=== PATIENT | female | born 1945 | race Caucasian/White ===

== ENCOUNTER → 2016-12-28 | Outpatient (CLI) | payer MEDICARE, OTHER ==
--- NOTE | 2016-12-29 10:41 | RAD ---
DATE: 12/28/2016 EXAM: MAMMO BHUPENDRA SCREENING BILATERAL Bilateral digital screening mammography to include digital breast tomosynthesis (3D mammography) HISTORY: Screening study. COMPARISON: 12/28/2015 This study was interpreted with the benefit of Computerized Aided Detection (CAD). FINDINGS: Digital MLO and CC mammograms of both breasts were obtained. Additionally digital breast tomosynthesis (3D mammography) images of both breasts in the MLO and CC projections were performed. Comparison study is dated 12/28/2015. The breast parenchyma is composed of scattered fibroglandular densities which can obscure a lesion on mammography (breast density code B). No spiculated mass is seen. No malignant appearing calcification or area of architectural distortion is noted. Benign-appearing calcifications are seen within both breasts, unchanged. Digital breast tomosynthesis images demonstrate no spiculated mass or malignant appearing calcification. Since the previous examination there has been no significant interval change. IMPRESSION: BI-RADS Category 1, negative. No mammographic evidence of malignancy. Routine yearly screening mammography is recommended for follow-up. BI-RADS CATEGORY: 1 NEGATIVE RECOMMENDED FOLLOW-UP: 12M 12 MONTH FOLLOW-UP PQRS compliance statement: Patient information was entered into a reminder system with a target due date 12/28/2017 for the next mammogram. Mammography is a sensitive method for finding small breast cancers, but it does not detect them all and is not a substitute for careful clinical examination. A negative mammogram does not negate a clinically suspicious finding and should not result in delay in biopsying a clinically suspicious abnormality. "Our facility is accredited by the [employer] Mammography [employer]."
== END | disposition home or self-care (01) ==
LOC: MAMMO 10:39
PROVIDERS: ATTEND Family Medicine
DX: Z12.31 Encounter for screening mammogram for malignant neoplasm of breast (principal)
CPT/HCPCS: 77063; G0202; 77067

== ENCOUNTER → 2018-03-20 | Outpatient (CLI) | payer MEDICARE, OTHER ==
--- NOTE | 2018-03-20 15:42 | RAD ---
DATE: 03/20/2018 EXAM: MAMMO BHUPENDRA SCREENING BILATERAL HISTORY: Routine screening. History of benign left breast biopsy. COMPARISON: Previous exam from 2017 and 2016. This study was interpreted with the benefit of Computerized Aided Detection (CAD). FINDINGS: Breast Density: SCATTERED The breast parenchyma shows scattered fibroglandular densities. Breast parenchyma level B. The skin and nipples are within normal limits. No suspicious calcifications, spiculated masses or areas of architectural distortion. Stable benign-appearing bilateral calcifications. Stable scattered nodularities. IMPRESSION: No mammographic evidence of malignancy. Stable mammogram. BI-RADS CATEGORY: 2 BENIGN FINDING(S) RECOMMENDED FOLLOW-UP: 12M 12 MONTH FOLLOW-UP PQRS compliance statement: Patient information was entered into a reminder system with a target due date for the next mammogram. Mammography is a sensitive method for finding small breast cancers, but it does not detect them all and is not a substitute for careful clinical examination. A negative mammogram does not negate a clinically suspicious finding and should not result in delay in biopsying a clinically suspicious abnormality. "Our facility is accredited by the [employer] Mammography [employer]."
--- NOTE | 2018-03-20 16:03 | RAD ---
Bone densitometry 03/20/2018 10:03 AM Indication: BONE DENSITY AXIAL screen for osteoporosis Comparison Study: Bone densitometry March 09, 2016. Discussion: Bone Densitometry was performed with dual photon absorption of the lumbar spine and right proximal femur Lumbar Spine: Bone average density is 1.6, 94g/cm2 for L1-L4. T-Score is 4.3 (prior bone mineral density 1.626). Right femoral neck: Bone average density is 1.067g/cm2. T-Score is 0.2 (prior bone mineral density 1.031). IMPRESSION: Normal bone mineral density, similar to comparison exams Note: Definitions established by the World Health Organization: Normal: T-score is -1.0 or above. Osteopenia: T-score is between -1.0 and -2.5. Osteoporosis: T-score is -2.5 or below. Electronically signed by: Shan Rasheed MD (03/20/2018 4:00 PM) [id number]
== END | disposition home or self-care (01) ==
LOC: MAMMO 09:17
PROVIDERS: ATTEND Family Medicine
DX: Z12.31 Encounter for screening mammogram for malignant neoplasm of breast (principal); Z13.820 Encounter for screening for osteoporosis; Z78.0 Asymptomatic menopausal state
CPT/HCPCS: 77063; 77067; 77080

== ENCOUNTER → 2019-03-21 | Outpatient (CLI) | payer MEDICARE, OTHER ==
--- NOTE | 2019-03-21 12:52 | RAD ---
INDICATION: Osteoporosis screening. Postmenopausal screening follow-up COMPARISON: 03/20/2018 TECHNIQUE: Bone densitometry was performed through the lumbar spine and right proximal femur. FINDINGS: Lumbar Spine: L1-4 BMD: 1.7 T-Score: 4.3 Increased by 11% from baseline from 2009. Similar to 2018 Femoral Neck: BMD: 1.03 T-Score: -0.1 Increased by 5% from baseline. Increased by 1-2% from prior IMPRESSION: 1. Lumbar spine falls within the normal range. 2. Femoral neck falls within the normal range. Electronically signed by: Ever Prater MD (03/21/2019 12:49 PM) [facility]
--- NOTE | 2019-03-21 14:31 | RAD ---
DATE: 03/21/2019 10:10 AM EXAM: MAMMO BHUPENDRA SCREENING BILATERAL HISTORY: Screening mammograms COMPARISON: March 20, 2018 and December 28, 2016 Bilateral CC and MLO views of the breasts were performed. Bilateral breast tomosynthesis was performed in CC and MLO projections. This study was interpreted with the benefit of Computerized Aided Detection (CAD). FINDINGS: Breast Density: SCATTERED The breast parenchyma shows scattered fibroglandular densities. Breast parenchyma level B Benign calcifications bilaterally, unchanged. No suspicious masses, microcalcifications or architectural distortion is present to suggest malignancy in either breast. The visualized axillae are unremarkable. IMPRESSION: No mammographic evidence of malignancy. BI-RADS CATEGORY: 1 NEGATIVE RECOMMENDED FOLLOW-UP: 12M 12 MONTH FOLLOW-UP Annual screening mammography is recommended, unless clinically indicated sooner based on symptoms or change in physical exam. PQRS compliance statement: Patient information was entered into a reminder system with a target due date one year for the next mammogram. Mammography is a sensitive method for finding small breast cancers, but it does not detect them all and is not a substitute for careful clinical examination. A negative mammogram does not negate a clinically suspicious finding and should not result in delay in biopsying a clinically suspicious abnormality. "Our facility is accredited by the [employer] Mammography Program."
== END | disposition home or self-care (01) ==
LOC: MAMMO 09:50
PROVIDERS: ATTEND Family Medicine
DX: Z12.31 Encounter for screening mammogram for malignant neoplasm of breast (principal); Z13.820 Encounter for screening for osteoporosis; N64.89 Other specified disorders of breast; N95.9 Unspecified menopausal and perimenopausal disorder
CPT/HCPCS: 77063; 77067; 77080

== ENCOUNTER → 2020-03-25 | Outpatient (CLI) | payer MEDICARE, OTHER ==
--- NOTE | 2020-03-25 11:44 | RAD ---
EXAM: DUAL ENERGY X-RAY ABSORPTIOMETRY (DEXA). HISTORY: Postmenopausal screening. FINDINGS: The lowest measured T-score is 0.5 in the right femoral neck, based on a bone mineral density of 1.103 g/cm^2. Refer to the worksheets for full detail. There has been a 12.8 percent increase in density of the lumbar spine and 9.6 percent increase in density of the right hip compared to a baseline study dated 09/23/2018. IMPRESSION: Normal. Bone mineral density yields a T-score of -1.0 or greater. Fracture risk is low. METHODOLOGY: Dual energy x-ray absorptiometry was performed to measure bone mineral density. The following analysis is based on the 2019 Official Positions of the International Society for Clinical Densitometry: Measurements of the hips and the average of L1-L4 are preferred. When the spine and/or hip cannot be feasibly measured or interpreted, or in the setting of hyperparathyroidism, distal radial bone mineral density may be measured. The lumbar spine T-score is based on the average bone mineral density of L1-L4. In the setting of artifact or anatomic abnormality, some lumbar levels may be excluded, and the remaining levels used for calculation. A single lumbar level is not used for diagnosis, and if only a single level is available for assessment, another anatomic site will be used to assign a diagnosis. The hip T-score is based on the bone mineral density measurement of the femoral neck or total proximal femur of either side, whichever is lowest. Bilateral mean values are not used for diagnosis. The forearm T-score is derived from 33% of the distal radius of the nondominant forearm. Electronically signed by: Moriah Osborne MD (03/25/2020 11:41 AM) [id number]
--- NOTE | 2020-03-25 13:29 | RAD ---
EXAM: Bilateral digital screening mammogram with tomosynthesis. HISTORY: 73-year-old female presents for screening mammography. TECHNIQUE: Full-field digital craniocaudal and mediolateral oblique 2D and 3D tomosynthesis images of both breasts are obtained for evaluation. Computer aided detection was applied. COMPARISON: 03/21/2019 and 03/20/2018 BREAST PARENCHYMAL DENSITY: Level B - Scattered fibroglandular densities. FINDINGS: There is no new suspicious mass, microcalcification or region of architectural distortion. There are stable areas of asymmetry and nodularity within both breasts. There are benign calcifications. IMPRESSION: BI-RADS Category 2: Benign finding(s). RECOMMENDATION: Annual mammography is recommended. If your mammogram demonstrates that you have dense breast tissue, which could hide abnormalities, and if you have other risk factors for breast cancer that have been identified, you might benefit from supplemental screening tests that may be suggested by your ordering physician. Dense breast tissue, in and of itself, is a relatively common condition. This information is not provided to cause undue concern, but rather to raise your awareness and to promote discussion with your physician regarding the presence of other risk factors, in addition to dense breast tissue. A report of your mammography results will be sent to you and your physician. You should contact your physician if you have any questions or concerns regarding this report. Mammography is a sensitive method for finding small breast cancers, but it does not detect them all and is not a substitute for careful clinical examination. A negative mammogram does not negate a clinically suspicious finding and should not result in delay in biopsying a clinically suspicious abnormality. PQRS compliance statement - Patient information was entered into a reminder system with a target due date for the next mammogram. "Our facility is accredited by the [employer] Mammography Program." Electronically signed by: Moriah Osborne MD (03/25/2020 1:25 PM) [id number]
== END ==
LOC: MAMMO 10:54
PROVIDERS: ATTEND Family Medicine
DX: Z12.31 Encounter for screening mammogram for malignant neoplasm of breast (principal); Z13.820 Encounter for screening for osteoporosis; N64.89 Other specified disorders of breast; Z78.0 Asymptomatic menopausal state
CPT/HCPCS: 77063; 77067; 77080

== ENCOUNTER → 2021-03-26 | Outpatient (CLI) | payer MEDICARE, OTHER ==
[~2021-03-26] MED LIST: ONDA4TAB12 PO
--- NOTE | 2021-03-26 13:56 | RAD ---
CT CERVICAL SPINE WO History: Neck pain radiating to right shoulder. Comparison: None. Technique: Noncontrast CT of the cervical spine. Findings: There are 7 nonrib-bearing cervical vertebral segments. There is no evidence for fracture in the cervical spine. Reversal the normal cervical lordosis. Mild approximately 2 mm anterolisthesis of C5 on C6. There is disc and C3-C4, C4-C5 and C5-C6. Mild uncovertebral hypertrophy at these levels. Prominent facet hypertrophy is C2-C6 bilaterally. There is moderate neural foraminal narrowing from C 3-C4 through C5-C6. No destructive osseous lesions are seen. Hazy calcification surrounding the dens likely represents cr ystal deposition disease. Bilateral carotid bulb calcifications. Impression: 1. No acute osseous abnormality in the cervical spine. 2. Multilevel degenerative disc, facet and uncovertebral disease causes moderate neural foraminal na rrowing bilaterally C3-C4 through C5-C6 with potential for symptomatic stenoses. If there is concern for radiculopathy, recommend cervical MRI. 3. ADC calcification surrounding the dens likely represent crystal deposition disease such as calciu m pyrophosphate or hydroxyapatite. ------- Exposure: One or more of the following individualized dose reduction techniques were utilized for thi s examination: 1. Automated exposure control 2. Adjustment of the mA and/or kV according to patient size 3. Use of iterative reconstruction technique. Electronically signed by: Akash Kim MD (03/26/2021 1:53 PM) [id number]
== END ==
LOC: RAD 12:45
PROVIDERS: ATTEND Family Medicine
DX: M48.02 Spinal stenosis, cervical region (principal); M43.12 Spondylolisthesis, cervical region; I65.23 Occlusion and stenosis of bilateral carotid arteries
CPT/HCPCS: 72125

== ENCOUNTER 2021-03-28 12:24 | Emergency (ER) | payer MEDICARE, OTHER ==
[~2021-03-28] VITALS: Ht 167.6 cm; Wt 95.4 kg
--- NOTE | 2021-03-28 13:03 | PHYS DOC ---
Past History Alcohol Use: Occasionally Adult General Chief Complaint Chief Complaint: MULTIPLE COMPLAINTS HPI HPI Patient is a 75-year-old female presenting for multiple complaints. First, she complains of chronic right neck pain. She has been evaluated this by her [facility] physician and has had extensive work-up in the outpatient setting with most recent CT neck imaging performed 48 hours prior showing areas of stenosis that are obviously symptomatic to patient. She has pending outpatient MRI for this matter. She was recently prescribed methocarbamol and and meloxicam which she has been taking since imaging 48 hours ago. She also reports that she has had 3 days of nausea vomit diarrhea. States she has had generalized nausea with numerous episodes of nonbloody nonbilious emesis and looser stools than usual that have also been nonbloody. She has had no sick contact or recent travel and is fully vaccinated against COVID-19. She does admit that she has been taking these new medications on an empty stomach Review of Systems Review of Systems Fourteen body systems of review of systems have been reviewed. See HPI for pertinent positives and negative responses, other [place] all other systems are negative, non-pertinent or non-contributory Physical Exam Physical Exam Constitutional: Well developed, well nourished, no acute distress, non-toxic appearance. HENT: Normocephalic, atraumatic, bilateral external ears normal, oropharynx moist, no oral exudates, nose normal. Eyes: PERRLA, EOMI, conjunctiva normal, no discharge. Neck: Normal range of motion, no midline tenderness, supple, no stridor. Positive Spurling sign of right Cardiovascular: Heart rate regular, sinus rhythm, no murmurs rubs or gallops Lungs & Thorax: Bilateral breath sounds clear to auscultation Abdomen: Bowel sounds normal, soft, no tenderness, no masses, no pulsatile masses. Nonsurgical abdomen, no peritoneal signs Skin: Warm, dry, no erythema, no rash. Back: No tenderness, no CVA tenderness. Extremities: No tenderness, no cyanosis, no clubbing, ROM intact, no edema. Neurologic: Alert and oriented X 3, grossly normal motor & sensory function, no focal deficits noted. Psychologic: Anxious affect and mood Current Patient Data Vital Signs Vital Signs Date Time Temp Pulse Resp B/P (MAP) Pulse Ox O2 Delivery O2 Flow Rate FiO2 03/28/21 12:24 97.4 92 16 124/50 (74) 96 Room Air Vital Signs Date Time Temp Pulse Resp B/P (MAP) Pulse Ox O2 Delivery O2 Flow Rate FiO2 03/28/21 12:24 97.4 92 16 124/50 (74) 96 Room Air Lab Results Laboratory Tests Test 03/28/21 13:11 03/28/21 14:00 White Blood Count 12.1 x10^3/uL Red Blood Count 4.14 x10^6/uL Hemoglobin 13.3 g/dL Bedside Hemoglobin gm/dL Hematocrit 40.6 % Bedside Hematocrit % Mean Corpuscular Volume 98 fL Mean Corpuscular Hemoglobin 32 pg Mean Corpuscular Hemoglobin Concent 33 g/dL Red Cell Distribution Width 13.8 % Platelet Count 305 x10^3/uL Neutrophils (%) (Auto) 85 % Lymphocytes (%) (Auto) 10 % Monocytes (%) (Auto) 5 % Eosinophils (%) (Auto) 1 % Basophils (%) (Auto) 0 % Neutrophils # (Auto) 10.3 x10^3uL Lymphocytes # (Auto) 1.2 x10^3/uL Monocytes # (Auto) 0.6 x10^3/uL Eosinophils # (Auto) 0.1 x10^3/uL Basophils # (Auto) 0.0 x10^3/uL Bedside Sodium 139 mmol/L Sodium Level 139 mmol/L Bedside Potassium 2.9 mmol/L Potassium Level 3.3 mmol/L Bedside Chloride 107 mmol/L Chloride Level 102 mmol/L Carbon Dioxide Level 19 mmol/L Bedside Total CO2 17 mmol/L Anion Gap 19 mmol/L Bedside Blood Urea Nitrogen mg/dL Blood Urea Nitrogen 33 mg/dL Creatinine 1.5 mg/dL Bedside Creatinine mg/dL Estimated GFR (Cockcroft-Gault) 33.9 BUN/Creatinine Ratio 22 Glucose Level mg/dL Calcium Level 9.0 mg/dL Bedside Ionized Calcium (Fletcher) mmol/L Total Bilirubin 0.3 mg/dL Aspartate Amino Transf (AST/SGOT) 31 U/L Alanine Aminotransferase (ALT/SGPT) 29 U/L Alkaline Phosphatase 59 U/L Troponin I High Sensitivity 11 ng/L Total Protein 7.2 g/dL Albumin 3.8 g/dL Albumin/Globulin Ratio 1.1 Lipase 526 U/L Magnesium Level 1.9 mg/dL Current Medications Medications (Trade) Dose Ordered Sig/Nina Route PRN Reason Start Time Stop Time Status Last Admin Dose Admin Sodium Chloride 1,000 ml @ 1,000 mls/hr 1X ONCE IV 03/28/21 13:00 03/28/21 13:59 DC 03/28/21 13:11 Potassium Chloride (Klor-Con) 40 meq 1X ONCE PO 03/28/21 14:00 03/28/21 14:10 DC 03/28/21 14:15 Methylprednisolone Acetate (DEPO-Medrol IM) 40 mg 1X ONCE IM 03/28/21 14:30 03/28/21 14:31 DC 03/28/21 14:36 EKG EKG EKG ordered and interpreted by myself at 1307 hrs. as sinus rhythm at 100 bpm, unremarkable intervals, no axis deviation, T wave inversion noted in lead II and aVF, x1 PVC seen, no STEMI Radiology/Procedures Radiology/Procedures [] Heart Score C/O Chest Pain: No Risk Factors: Risk Factors: DM, Current or recent (<one month) smoker, HTN, HLP, family hist ory of CAD, obesity. Risk Scores: Risk Factors: DM, Current or recent (<one month) smoker, HTN, HLP, family history of CAD, obesity. Course & Med Decision Making Course & Med Decision Making ABCs unremarkable HPI physical exam and comprehensive ER work-up nonconcerning for any emergent or surgical issues Patient has chronic neck pain for which 40 mg Depo-Medrol shot administered. Close PCP follow-up for continued outpatient work-up that should include MRI and likely orthopedic intervention recommended No concerning findings on ER visit today after all work-up disclosed to patient. She is PUI pending PCR Covid result and appropriate precautions and self quarantine instructions advised Strict return precautions discussed and understood by patient, all questions and concerns addressed prior to ER departure Dragon Disclaimer Dragon Disclaimer This electronic medical record was generated, in whole or in part, using a voice recognition dictation system. Departure Departure: Impression: Primary Impression: Chronic neck pain Additional Impressions: Nausea, vomiting, and diarrhea Person under investigation for COVID-19 Electrolyte abnormality Disposition: HOME / SELF CARE / HOMELESS Condition: IMPROVED Referrals: CHRISS DARBY MD (PCP) Additional Instructions: You were seen for nausea vomit diarrhea and possible infection with COVID-19. Your physical exam was reassuring. Comprehensive ER work-up was nonconcerning for any emergent or surgical issues. You had minor electrolyte imbalances that were fixed while in ER setting, no further treatment is needed but you should follow up with your primary care for repeat electrolyte levels this week. We tested you for COVID-19 but this test does not come back for 1 to 2 days. In the meantime you need to quarantine yourself at home away from all other individuals, especially those who are elderly or have any other chronic health issues or an immunocompromised status. You should return to the ED if you develop worsening cough, shortness of breath, chest pain, or any other new or concerning symptoms. Alternate Tylenol and ibuprofen as needed for body aches and pain. If your test does come back positive you need to quarantine yourself for 10 days until symptom-free. You should make sure to drink plenty of fluids and get plenty of rest. In addition, CT scan of your neck was reviewed that was performed 2 days prior to you coming in for evaluation, it is recommended that you seek outpatient MRI for your chronic neck pain. You were administered a steroid shot today for this. Any concerning signs or symptoms present prior to outpatient follow-up please do not hesitate to come back for repeat evaluation. It was a pleasure to take care of you and I wish you the best going forward Scripts Ondansetron (ONDANSETRON ODT) 4 Mg Tab.rapdis 1 TAB PO PRN Q6-8HRS for NAUSEA, #16 TAB Prov: ROBBIE IBRAHIM DO 03/28/21 Problem Qualifiers ROBBIE IBRAHIM DO Mar 28, 2021 13:03
[2021-03-28] MEDS: IV NORMAL SALINE 1,000ML 1,000 ML IV ONE (13:11)
--- NOTE | 2021-03-28 13:47 | EKG ---
[address] [address] Test Date: 2021-03-28 Test Time: 13:04:57 Pat Name: NICOLE GONZALEZ Department: Room: Gender: F Bridge Rigger: COLIN : 1945 Requested By: ROBBIE IBRAHIM Order Number: [id number] Reading MD: Braulio Romano Measurements Intervals [place] Rate: 100 P: 45 [place]: 146 QRS: 21 QRSD: 88 T: 17 QT: 364 QTc: 473 Interpretive Statements SINUS RHYTHM VENTRICULAR PREMATURE COMPLEX(ES) ABNORMAL ECG RI6.02 No previous ECG available for comparison Electronically Signed On 03-29-2021 9:02:00 DATA ENTRY CLERK by Braulio Romano
[2021-03-28 13:54] LABS: SODIUM ISTAT 139 mmol/L (135-145)
[2021-03-28 13:55] LABS: POTASSIUM ISTAT 2.9 mmol/L (3.5-5.0)
[2021-03-28 14:04] LABS: BASO % 0 % (0-3); EOS # 0.1 x10^3/uL (0.0-0.7); EOS % 1 % (0-3); HEMATOCRIT 40.6 % (36.0-47.0); HEMOGLOBIN 13.3 g/dL (12.0-15.5); LYMPH # 1.2 x10^3/uL (1.0-4.8); LYMPH % 10 % (24-48); MEAN CORPUSCULAR HEMOGLOBIN 32 pg (25-35); MEAN CORPUSCULAR HGB CONC 33 g/dL (31-37); MEAN CORPUSCULAR VOLUME 98 fL (79-100); MONO # 0.6 x10^3/uL (0.0-1.1); MONO % 5 % (0-9); NEUT # 10.3 x10^3uL (1.8-7.7); NEUT % 85 % (31-73); PLATELET COUNT 305 x10^3/uL (140-400); RED BLOOD COUNT 4.14 x10^6/uL (3.50-5.40); RED CELL DISTRIBUTION WIDTH 13.8 % (11.5-14.5); WHITE BLOOD COUNT 12.1 x10^3/uL (4.0-11.0)
[2021-03-28] MEDS: POTASSIUM CHLORIDE 20 MEQ TABLET.ER. PO ONE (14:15)
[2021-03-28 14:22] LABS: CREATININE 1.5 mg/dL (0.6-1.0); GFR 33.9; POTASSIUM 3.3 mmol/L (3.5-5.1)
[2021-03-28 14:28] LABS: ALBUMIN 3.8 g/dL (3.4-5.0); ALBUMIN/GLOBULIN RATIO 1.1 (1.0-1.7); TOTAL BILIRUBIN 0.3 mg/dL (0.2-1.0); TOTAL PROTEIN 7.2 g/dL (6.4-8.2)
[2021-03-28] MEDS: methylPREDNISolone ACETATE 40 MG/ML VIAL. IM ONE (14:36)
[2021-03-28] MEDS ORDERED: ONDA4TAB12 PO (14:56)
[2021-03-28 15:03] VITALS: BP 125/56
== END 2021-03-28 15:10 | disposition home or self-care (01) ==
LOC: ER 12:24
DX: M54.2 Cervicalgia (principal); G89.29 Other chronic pain; R11.2 Nausea with vomiting, unspecified; R19.7 Diarrhea, unspecified; E87.8 Other disorders of electrolyte and fluid balance, not elsewhere classified; Z20.822 Contact with and (suspected) exposure to COVID-19
CPT/HCPCS: 36415; 80053; 83690; 83735; 84484; 85025; 93005; 96360; 96372; 99284; C9803; J1030; J7030; U0003; 80047; 96365

== ENCOUNTER 2021-03-31 12:10 | Emergency (ER) | payer MEDICARE, OTHER ==
[~2021-03-31] VITALS: Ht 167.6 cm; Wt 95.4 kg
[2021-03-31] MEDS: IV NORMAL SALINE 1,000ML 1,000 ML IV ONE (12:30)
[2021-03-31 12:44] LABS: BASO # 0.1 x10^3/uL (0.0-0.2); BASO % 1 % (0-3); EOS # 0.1 x10^3/uL (0.0-0.7); EOS % 1 % (0-3); HEMATOCRIT 42.5 % (36.0-47.0); LYMPH # 1.6 x10^3/uL (1.0-4.8); LYMPH % 15 % (24-48); MEAN CORPUSCULAR HEMOGLOBIN 32 pg (25-35); MEAN CORPUSCULAR HGB CONC 33 g/dL (31-37); MEAN CORPUSCULAR VOLUME 99 fL (79-100); MONO # 0.5 x10^3/uL (0.0-1.1); MONO % 5 % (0-9); NEUT # 8.6 x10^3uL (1.8-7.7); NEUT % 79 % (31-73); PLATELET COUNT 330 x10^3/uL (140-400); RED BLOOD COUNT 4.32 x10^6/uL (3.50-5.40); RED CELL DISTRIBUTION WIDTH 14.2 % (11.5-14.5); WHITE BLOOD COUNT 10.9 x10^3/uL (4.0-11.0)
--- NOTE | 2021-03-31 12:47 | EKG ---
[address] [address] Test Date: 2021-03-31 Test Time: 12:31:35 Pat Name: NICOLE GONZALEZ Department: Room: Gender: F Activities Director: : 1945 Requested By: KEL ROBERT Order Number: [id number] Reading MD: El Martini MD Measurements Intervals [place] Rate: 169 P: [place]: QRS: 11 QRSD: 80 T: 25 QT: 284 QTc: 481 Interpretive Statements SVT PROBABLE AVNRT CONSIDER LATERAL ISCHEMIA Electronically Signed On 04-04-2021 14:06:24 LICENSED PRACTICAL NURSE CLINIC NURSE by El Martini MD
[2021-03-31] MEDS: dilTIAZem 25 MG/5 ML VIAL IVP ONE ×2 (12:50→13:21)
[2021-03-31] MEDS: ASPIRIN 325 MG TABLET PO ONE (12:50)
--- NOTE | 2021-03-31 12:52 | PHYS DOC ---
Past History Past Medical History: A-Fib, Other Additional Past Medical Histor: hernia Past Surgical History: Other Additional Past Surgical Histo: hernia repair Smoking: Non-smoker Alcohol Use: Occasionally Drug Use: None General Adult EDM: Chief Complaint: DIZZY/LIGHT HEADED HPI: HPI: 75-year-old female with past medical history of atrial fibrillation presents via EMS with report of continuous 2-day history of lightheadedness to point where she feels like she is going to pass out anytime she exerts herself. Denies room spinning sensation. Reports associated generalized weakness. Denies head trauma or neck pain. Denies fever or chills. Denies known exposure to COVID- 19. Patient has received Moderna COVID-19 vaccinations x2. Patient also reports she has had similar intermittent episodes over the last 2 weeks. Patient reports she did present to her PCP who thought she might have a pinched nerve in her neck. Review of Systems: Review of Systems: Constitutional: Denies fever or chills; reports generalized malaise Eyes: Denies redness or eye pain HENT: Denies nasal congestion or sore throat Respiratory: Denies cough or shortness of breath Cardiovascular: Denies chest pain; reports palpitations GI: Denies abdominal pain, nausea, or vomiting : Denies dysuria or hematuria Musculoskeletal: Denies back pain or joint pain Integument: Denies rash or skin lesions Neurologic: Denies headache, focal weakness or sensory changes; reports generalized weakness and near syncope Complete systems were reviewed and found to be within normal limits, except as documented in this note. Current Medications: Current Meds: Current Medications Medications (Trade) Dose Ordered Sig/[facility] Start Time Stop Time Status Last Admin Dose Admin Aspirin (August Aspirin) 325 mg 1X ONCE 03/31/21 12:30 03/31/21 12:31 DC Diltiazem HCl (Cardizem Iv Push) 20 mg 1X ONCE 03/31/21 12:30 03/31/21 12:31 DC Diltiazem HCl 125 mg/Sodium Chloride 125 ml @ 10 mls/hr 1X ONCE 03/31/21 12:30 04/01/21 00:59 Sodium Chloride 1,000 ml @ 1,000 mls/hr 1X ONCE 03/31/21 12:30 03/31/21 13:29 Allergies: Allergies: Allergies Coded Allergies Type Severity Reaction Last Updated Verified No Known Drug Allergies 03/28/21 No Physical Exam: PE: Constitutional: Well developed, well nourished, no acute distress, non-toxic appearance HENT: Normocephalic, atraumatic Eyes: Conjunctiva normal, no discharge Neck: Normal range of motion, no tenderness, supple Lungs & Thorax: No respiratory distress, equal chest rise and fall Cardiovascular: Tachycardia, irregularly irregular Abdomen: Soft, no tenderness Skin: Warm, dry, no erythema, no rash Extremities: No tenderness, ROM intact, no edema Neurologic: Alert and oriented X 3, normal motor function, normal sensory function, no focal deficits noted Psychologic: Affect normal, judgment normal Current Patient Data: Labs: Laboratory Tests Test 03/31/21 12:26 White Blood Count 10.9 x10^3/uL (4.0-11.0) Red Blood Count 4.32 x10^6/uL (3.50-5.40) Hemoglobin 14.0 g/dL (12.0-15.5) Hematocrit 42.5 % (36.0-47.0) Mean Corpuscular Volume 99 fL (79-100) Mean Corpuscular Hemoglobin 32 pg (25-35) Mean Corpuscular Hemoglobin Concent 33 g/dL (31-37) Red Cell Distribution Width 14.2 % (11.5-14.5) Platelet Count 330 x10^3/uL (140-400) Neutrophils (%) (Auto) 79 % (31-73) H Lymphocytes (%) (Auto) 15 % (24-48) L Monocytes (%) (Auto) 5 % (0-9) Eosinophils (%) (Auto) 1 % (0-3) Basophils (%) (Auto) 1 % (0-3) Neutrophils # (Auto) 8.6 x10^3uL (1.8-7.7) H Lymphocytes # (Auto) 1.6 x10^3/uL (1.0-4.8) Monocytes # (Auto) 0.5 x10^3/uL (0.0-1.1) Eosinophils # (Auto) 0.1 x10^3/uL (0.0-0.7) Basophils # (Auto) 0.1 x10^3/uL (0.0-0.2) Vital Signs: Vital Signs Date Time Temp Pulse Resp B/P (MAP) Pulse Ox O2 Delivery O2 Flow Rate FiO2 03/31/21 12:20 98.4 168 16 107/72 (84) 98 Room Air EKG: EKG: @1231 Afib RVR at 169bpm, QRS 80ms, QT/QTc 284/481ms Radiology/Procedures: Radiology/Procedures: PROCEDURE: PORTABLE CHEST 1V XR CHEST 1V History: Reason: chest discomfort, weakness / Spl. Instructions: / History: Comparison: None. Findings: Mild left basilar linear atelectasis. No consolidation or pleural effusion. Normal heart size. No pneumothorax. Impression: 1. No acute cardiopulmonary process. Electronically signed by: Santiago Diaz DO (03/31/2021 12:56 PM) [id number] Heart Score: C/O Chest Pain: N/A Course & Med Decision Making: Course & Med Decision Making Pertinent Labs and Imaging studies reviewed. (See chart for details) Patient presents via EMS in A. fib RVR with report of near syncope that has been intermittent over the last 2 weeks however been consistent over last 2 days. EKG confirmed A. fib RVR. Cardizem bolus x2 and drip initiated. Labs obtained and posted to chart. Hypokalemia and hypomagnesemia addressed. Chest x-ray clear. Patient requiring transfer for admission for further evaluation and treatment as currently do not have beds that will accommodate patient on a IV drip at [facility]. Discussed with Dr. Abbasi (hospitalist) who is in agreement with admission to [facility]. Discussed findings and plan with patient, who acknowledges understanding and agreement. Debra Disclaimer: Debra Disclaimer: This electronic medical record was generated, in whole or in part, using a voice recognition dictation system. Departure Departure: Impression: Primary Impression: Atrial fibrillation with rapid ventricular response Additional Impressions: Hypokalemia Hypomagnesemia Disposition: 02 SHORT TERM HOSPITAL ([facility]- Dr. Abbasi (hospitalist) accepting) Condition: STABLE Referrals: CHRISS DARBY MD (PCP) Critical Care Time Critical care time was 30 minutes which includes time at bedside, spent in discussion of patient's care with specialists and/or family members, with interpretation of laboratory and/or radiological studies and is exclusive of procedures. KEL ROBERT DO Mar 31, 2021 12:52
--- NOTE | 2021-03-31 12:59 | RAD ---
XR CHEST 1V History: Reason: chest discomfort, weakness / Spl. Instructions: / History: Comparison: None. Findings: Mild left basilar linear atelectasis. No consolidation or pleural effusion. Normal heart size. No pne umothorax. Impression: 1. No acute cardiopulmonary process. Electronically signed by: Santiago Diaz DO (03/31/2021 12:56 PM) [id number]
[2021-03-31 13:08] LABS: ALBUMIN 3.5 g/dL (3.4-5.0); ALBUMIN/GLOBULIN RATIO 0.8 (1.0-1.7); CALCIUM 9.3 mg/dL (8.5-10.1); CREATININE 1.2 mg/dL (0.6-1.0); GFR 43.9; MAGNESIUM 1.5 mg/dL (1.8-2.4); TOTAL BILIRUBIN 0.2 mg/dL (0.2-1.0); TOTAL PROTEIN 7.9 g/dL (6.4-8.2)
[2021-03-31 13:09] LABS: POTASSIUM 2.8 mmol/L (3.5-5.1)
[2021-03-31] MEDS: MAGNESIUM SULFATE 2GM 50 ML IV ONE (13:15)
[2021-03-31] MEDS: POTASSIUM CHLORIDE 10 MEQ TABLET.ER. PO ONE (13:15)
[2021-03-31] MEDS ORDERED: IV NORMAL SALINE 100ML 100 ML ONE (13:17)
[2021-03-31] MEDS: dilTIAZem VIAL 125 MG in IV NORMAL SALINE 100ML 100 ML IV ONE (13:21)
[2021-03-31 15:18] VITALS: BP 119/41
[2021-04-01 18:49] LABS: FREE T4 0.92 ng/dL (0.76-1.46); THYROID STIM HORMONE (TSH) 1.244 uIU/mL (0.358-3.740)
== END 2021-03-31 16:15 | disposition short-term general hospital (02) ==
LOC: ER 12:10
DX: U07.1 COVID-19 (principal); I48.20 Chronic atrial fibrillation, unspecified; E87.6 Hypokalemia; E83.42 Hypomagnesemia
CPT/HCPCS: 71045; 80053; 82553; 83690; 83735; 83880; 84439; 84443; 84481; 84484; 85025; 85610; 85730; 87426; 93005; 96361; 96365; 96366; 96375; 96376; 99285; C9803; J3475; J3490; J7030; U0003